=== PATIENT | female | born 1995 | race Caucasian/White ===

== ENCOUNTER 2017-12-26 21:17 | Emergency (ER) | payer BC, OTHER ==
--- NOTE | 2017-12-26 22:12 | PDOC ---
Attending Attestation - HPI HPI: 12/26/17 23:28 The patient is a 22 year old female, with a significant PMH of hypothyroidism, who presents to the emergency department via EMS with alcohol intoxication. The patient denies any recent injuries or trauma. The patient denies any complaints. The patient denies chest pain, shortness of breath, headache and dizziness. Denies fever, chills, nausea, vomit, diarrhea and constipation. Denies dysuria, frequency, urgency and hematuria. Allergies: NKA - Physicial Exam PE: 12/26/17 23:28 GENERAL: (+) EtOH on breath. Well-appearing, well-nourished. No apparent distress. HEENT: Normocephalic, atraumatic. PERRL, EOM intact. CARDIOVASCULAR: Normal S1, S2. Regular rate and rhythm. PULMONARY: Clear to auscultation bilaterally. ABDOMEN: Soft, non-distended, non-tender. EXTREMITIES: Normal ROM in all four extremities. No gross deformities. SKIN: Warm, dry. No rash NEUROLOGICAL: No focal neurological deficits. <Jose Washington - Last Filed: 12/27/17 01:04> - Resident Resident Name: Raul Valle - ED Attending Attestation I have performed the following: I have examined & evaluated the patient, The case was reviewed & discussed with the resident, I agree w/resident's findings & plan, Exceptions are as noted - Medical Decision Making 12/30/17 19:25 pt treated and released <Srinivasa Gibbs - Last Filed: 12/30/17 19:25> Attestations - Attestations 12/26/17 23:28 Documentation prepared by Jose Washington, acting as medical care administrator for Srinivasa Gibbs DO. <Jose Washington - Last Filed: 12/27/17 01:04>
[2017-12-27 00:50] LABS: URINE APPEARANCE CLEAR; URINE BILIRUBIN NEGATIVE (<2.0 mg/dL); URINE COLOR COLORLESS; URINE GLUCOSE (UA) NEGATIVE (NEGATIVE); URINE KETONE NEGATIVE (NEGATIVE); URINE LEUK ESTERASE NEGATIVE (NEGATIVE); URINE NITRITE NEGATIVE (NEGATIVE); URINE PROTEIN NEGATIVE (NEGATIVE); URINE UROBILINOGEN NEGATIVE mg/dL (0.2-1.0)
--- NOTE | 2017-12-27 01:01 | PDOC ---
History of Present Illness - General Stated Complaint: INTOX Time Seen by Provider: 12/26/17 21:32 History Source: Patient Exam Limitations: Intoxication - History of Present Illness Initial Comments: 12/27/17 00:56 Patient is a 22F with history of hypothyroidism here today complaining of intoxication. EMS reports that patient was vomiting in an uber several times and was altered, but conscious. Patient states that she had 3 drinks today. Patient is tearful. Denies other drug use. Denies history of seizures and withdrawal. Patient states that she really doesn't remember what happened tonight. Past History - Past Medical History Allergies/Adverse Reactions: Allergies Allergy/AdvReac Type Severity Reaction Status Date / Time No Known Allergies Allergy Verified 01/11/12 21:28 Home Medications: Ambulatory Orders NK [No Known Home Medication] 12/27/17 Thyroid Disease: Yes (MINDA'S?) - Immunization History Immunization Up to Date: Yes - Suicide/Smoking/Psychosocial Hx Smoking Status: No Smoking History: Unknown if ever smoked Number of Cigarettes Smoked Daily: 0 Review of Systems - Review of Systems Comments:: 12/27/17 00:58 GENERAL/CONSTITUTIONAL: No fever or chills. No weakness. HEAD, EYES, EARS, NOSE AND THROAT: No change in vision. No sore throat. CARDIOVASCULAR: No chest pain or shortness of breath RESPIRATORY: No cough, wheezing, or hemoptysis. GASTROINTESTINAL: +nausea, vomiting. No diarrhea or constipation. GENITOURINARY: No dysuria, frequency, or change in urination. MUSCULOSKELETAL: No joint or muscle swelling or pain. No neck or back pain. SKIN: No rash NEUROLOGIC: No headache, vertigo, loss of consciousness, or change in strength/ sensation. ENDOCRINE: No increased thirst. No abnormal weight change HEMATOLOGIC/LYMPHATIC: No anemia, easy bleeding, or history of blood clots. ALLERGIC/IMMUNOLOGIC: No hives or skin allergy. *Physical Exam - Physical Exam Comments: 12/27/17 00:58 GENERAL: Awake, alert, and fully oriented, covered in vomit, smells of alcohol HEAD: No signs of trauma, normocephalic, atraumatic EYES: PERRLA, EOMI, sclera anicteric, conjunctiva clear ENT: Auricles normal inspection, hearing grossly normal, nares patent, oropharynx clear without exudates. Moist mucosa NECK: Normal ROM, supple, no lymphadenopathy, JVD, or masses LUNGS: No distress, speaks full sentences, clear to auscultation bilaterally HEART: Regular rate and rhythm, normal S1 and S2, no murmurs, rubs or gallops, peripheral pulses normal and equal bilaterally. ABDOMEN: Soft, nontender, normoactive bowel sounds. No guarding, no rebound. No masses EXTREMITIES: Normal inspection, Normal range of motion, no edema. No clubbing or cyanosis. NEUROLOGICAL: Cranial nerves II through XII grossly intact. Slurred speech, no focal sensorimotor deficits SKIN: Warm, Dry, normal turgor, no rashes or lesions noted. Medical Decision Making - Medical Decision Making 12/27/17 00:59 Patient is a 22F with history of hypothyroidism and depression here today complaining of intoxication. Patient is alert, oriented, but intoxicated. Asked for mother to be contacted, phone call placed. Patient's mother at bedside, reports additional history of depression. Patient asking for drug screen to be drawn, concerned that she was poisoned. UA/Utox sent. 12/27/17 01:03 Patient reassessed, alert, no longer slurring speech, looks much improved. Discharged into care of her parents. *DC/Admit/Observation/Transfer Diagnosis at time of Disposition: Intoxication - Discharge Dispostion Disposition: HOME Condition at time of disposition: Good Decision to Admit order: No - Referrals - Patient Instructions Printed Discharge Instructions: DI for Alcohol Poisoning Additional Instructions: Please return if you have any new worsening or concerning symptoms. - Post Discharge Activity
[2017-12-27 01:10] LABS: HCG,QUALITATIVE URINE NEGATIVE
[2017-12-27 01:17] VITALS: TEMP 98.7
[2017-12-27 01:21] VITALS: BP 128/76; PULSE 92; BMI 20.5
[2017-12-27 01:25] LABS: COCAINE, UR NEGATIVE ng/ml (CUTOFF=300); METHADONE, UR NEGATIVE ng/ml (CUTOFF=300); OPIATES, URI NEGATIVE ng/ml (CUTOFF=300); PHENCYCLIDINE,URINE NEGATIVE ng/ml (CUTOFF=25); URINE AMPHETAMINES NEGATIVE ng/ml (CUTOFF=500); URINE BARBITURATES NEGATIVE ng/ml (CUTOFF=200); URINE BENZODIAZEPINES NEGATIVE ng/ml (CUTOFF=200)
== END 2017-12-27 01:23 | disposition home or self-care (01) ==
LOC: JER 21:17
DX: F10.120 Alcohol abuse with intoxication, uncomplicated (principal); Y90.7 Blood alcohol level of 200-239 mg/100 ml; E03.9 Hypothyroidism, unspecified
CPT/HCPCS: 36415; 80307; 81003; 84703; 99282-25